=== PATIENT | female | born 1965 ===

== ENCOUNTER 2017-03-13 08:07 | Emergency (ER) | payer OTHER ==
[~2017-03-13] VITALS: Ht 167.6 cm; Wt 73.6 kg
[2017-03-13 08:12] VITALS: TEMP 36.6; Ht 167.6 cm; Wt 73.6 kg
[2017-03-13] MEDS ORDERED: MoRPHine SULFATE 4 MG/ML 1 ML CARP\\VIAL IV STA (08:55)
[2017-03-13] MEDS ORDERED: ONDANSETRON INJ 2 MG/ML 2 ML VIAL IV STA (08:55)
[2017-03-13] MEDS ORDERED: KETOROLAC TROMETHAMINE 30 MG/ML VIAL IV STA (08:55)
--- NOTE | 2017-03-13 09:00 | EMERGENCY ROOM VISIT NOTE ---
History First contact with patient: 08:43 Chief Complaint: BACK PAIN Stated Complaint: BACK SPASMS History of Present Illness The patient is a 51 year old female who presents to the Emergency Room with complaints of back pain. The patient states that last night she was getting ready for bed and bent over to open the bottom drawer and felt a severe pain in her low back. She states that she took a muscle relaxer and Tylenol as she has had this in the past. The patient states that she had no improvement today. She states she has significant discomfort with standing and walking. She states she had to crawl back and forth to the bathroom today because it was so painful. She rates her discomfort a 7/10. She denies any falls or injuries. She denies any pain in her chest or trouble breathing. She denies any fevers. She denies any radiating pain, numbness, tingling, weakness in the lower extremities. She denies any loss of bowel or bladder control. She reports a history of similar which was improved with a muscle relaxer and restorative care technician. Review of Systems A 10 system review of systems was completed with positives and pertinent negatives listed in the HPI. Past Medical/Surgical History Medical Problems: (1) Vertebral artery dissection Social History Smoking Status: Never Smoker Housing Status: lives with family Current/Historical Medications Scheduled Aspirin (Aspirin Low Dose), 1 TAB PO DAILY Atorvastatin (Lipitor), 10 MG PO DAILY Citalopram Hydrobromide (Citalopram Hydrobromide), Unknown Dose PO DAILY Enalapril (Vasotec), 10 MG PO BID Scheduled PRN Ibuprofen (Motrin), 600 MG PO Q6H PRN for Pain Oxycodone Ir (Roxicodone Ir), 1-2 TAB PO Q4H PRN for Pain Allergies Coded Allergies: No Known Allergies (Unverified , 03/13/17) Physical Exam Vital Signs Date Time Temp Pulse Resp B/P (MAP) Pulse Ox O2 Delivery O2 Flow Rate FiO2 03/13/17 11:17 56 20 147/84 98 03/13/17 10:01 67 20 147/91 96 Room Air 03/13/17 09:38 49 16 132/87 95 Room Air 03/13/17 08:12 36.6 59 18 130/83 96 Room Air Physical Exam VITALS: Vitals are noted on the nurse's note and reviewed by myself. Vital signs stable. The patient is afebrile. GENERAL: This is a 51-year-old female, in no acute distress, nondiaphoretic, well-developed well-nourished. SKIN: The skin was without rashes, erythema, edema, or bruising. There is no tenting of the skin. Capillary reflex less than 2 seconds. HEAD: Normocephalic atraumatic. EARS: The external ears are normal in appearance. EYES: Pupils equal round and reactive to light and accommodation. Conjunctivae without injection, sclerae without icterus. Extraocular movements intact. NOSE: Patent, turbinates without inflammation or discharge. MOUTH: Mucous membranes moist. Airway patent. Tongue does not deviate. NECK: Supple without nuchal rigidity. No lymphadenopathy. No thyromegaly. Cervical spine is nontender. No JVD. HEART: Regular rate and rhythm without murmurs gallops or rubs. LUNGS: Clear to auscultation bilaterally without wheezes, rales or rhonchi. No retractions or accessory muscle use. ABDOMEN: Positive bowel sounds x 4. Soft, nontender, without masses or organomegaly. MUSCULOSKELETAL: No muscle atrophy, erythema, or edema noted. Full range of motion without joint tenderness in all extremities. There is tenderness to palpation over the lumbar spine. Strength 5/5 throughout. NEURO: Patient was alert and oriented to person place and time. Normal sensation to light and sharp touch. Deep tendon reflexes 2+ throughout. No focal neurological deficits. Medical Decision & Procedures ER Provider Diagnostic Interpretation: LUMBAR SPINE 5 VIEWS CLINICAL HISTORY: Low back pain. FINDINGS: 5 views of the lumbar spine are obtained. No prior studies are available for comparison at the time of dictation. The skeletal structures are osteopenic. There is no radiographic evidence of fracture or malalignment. Vertebral body height and alignment are maintained. The transverse and spinous processes are intact. There is no evidence of spondylolysis. The intervertebral disc spaces are well-maintained. The visualized bony pelvis appears intact. There is a nonobstructed abdominal bowel gas pattern. There is moderate colonic fecal retention. An intrauterine device is noted in the pelvis. IMPRESSION: No acute bony abnormality is seen involving the lumbosacral spine. Laboratory Results 03/13/17 09:40 Red Blood Count 4.29, Mean Corpuscular Volume 94.4, Mean Corpuscular Hemoglobin 32.4, Mean Corpuscular Hemoglobin Concent 34.3, Mean Platelet Volume 10.9, Neutrophils (%) (Auto) 73.0, Lymphocytes (%) (Auto) 20.2, Monocytes (%) (Auto) 5.6, Eosinophils (%) (Auto) 0.9, Basophils (%) (Auto) 0.1, Neutrophils # (Auto) 6.24, Lymphocytes # (Auto) 1.73, Monocytes # (Auto) 0.48, Eosinophils # (Auto) 0.08, Basophils # (Auto) 0.01 03/13/17 09:40 Test 03/13/17 09:40 03/13/17 10:20 White Blood Count 8.56 K/uL (4.8-10.8) Red Blood Count 4.29 M/uL (4.2-5.4) Hemoglobin 13.9 g/dL (12.0-16.0) Hematocrit 40.5 % (37-47) Mean Corpuscular Volume 94.4 fL (80-100) Mean Corpuscular Hemoglobin 32.4 pg (25-34) Mean Corpuscular Hemoglobin Concent 34.3 g/dl (32-36) Platelet Count 154 K/uL (130-400) Mean Platelet Volume 10.9 fL (7.4-10.4) Neutrophils (%) (Auto) 73.0 % Lymphocytes (%) (Auto) 20.2 % Monocytes (%) (Auto) 5.6 % Eosinophils (%) (Auto) 0.9 % Basophils (%) (Auto) 0.1 % Neutrophils # (Auto) 6.24 K/uL (1.4-6.5) Lymphocytes # (Auto) 1.73 K/uL (1.2-3.4) Monocytes # (Auto) 0.48 K/uL (0.11-0.59) Eosinophils # (Auto) 0.08 K/uL (0-0.5) Basophils # (Auto) 0.01 K/uL (0-0.2) RDW Standard Deviation 45.6 fL (36.4-46.3) RDW Coefficient of Variation 13.3 % (11.5-14.5) Immature Granulocyte % (Auto) 0.2 % Immature Granulocyte # (Auto) 0.02 K/uL (0.00-0.02) Anion Gap 7.0 mmol/L (3-11) Est Creatinine Clear Calc Drug Dose 95.4 ml/min Estimated GFR () 114.6 Estimated GFR (Non- 98.9 BUN/Creatinine Ratio 14.7 (10-20) Calcium Level 9.4 mg/dl (8.5-10.1) Urine Color YELLOW Urine Appearance CLEAR (CLEAR) Urine pH 7.0 (4.5-7.5) Urine Specific [place] 1.008 (1.000-1.030) Urine Protein NEG (NEG) Urine Glucose (UA) NEG (NEG) Urine Ketones NEG (NEG) Urine Occult Blood TRACE (NEG) Urine Nitrite NEG (NEG) Urine Bilirubin NEG (NEG) Urine Urobilinogen NEG (NEG) Urine Leukocyte Esterase NEG (NEG) Urine WBC (Auto) 1-5 /hpf (0-5) Urine RBC (Auto) 0-4 /hpf (0-4) Urine Hyaline Casts (Auto) 0 /lpf (0-5) Urine Epithelial Cells (Auto) 5-10 /lpf (0-5) Urine Bacteria (Auto) NEG (NEG) Medications Administered Medications (Trade) Dose Ordered Sig/Isabell Route Start Time Stop Time Status Last Admin Dose Admin Morphine Sulfate (MoRPHine SULFATE INJ) 4 mg NOW STAT IV 03/13/17 08:55 03/13/17 08:57 DC 03/13/17 09:37 4 MG Ketorolac Tromethamine (Toradol Inj) 30 mg NOW STAT IV 03/13/17 08:55 03/13/17 08:57 DC 03/13/17 09:36 30 MG Ondansetron HCl (Zofran Inj) 4 mg NOW STAT IV 03/13/17 08:55 03/13/17 08:57 DC 03/13/17 09:35 4 MG ED Course The patient was seen and examined. Previous visits were reviewed. The patient does not have a fever or leukocytosis. She does not have any significant electrolyte abnormality. There is no evidence for urinary tract infection or hematuria. Lumbar spine x-rays reveal some degenerative change but no acute abnormality She was given 4 mg IV morphine, 30 mg IV Toradol and 4 mg IV Zofran The patient was feeling much better and felt as though she could move around without significant difficulty The patient presented to the emergency department with low back pain. She describes it as spasm. The pain does not radiate. She does not have any neurologic deficit on exam or by history. She does not have a fever or leukocytosis. The patient will be given a prescription for pain medication. She already has a prescription for Flexeril. She is encouraged to follow-up with a family doctor for further evaluation, management and possible referral for physical therapy and/or orthopedic referral. She should return with any worsening symptoms. Medical Decision DIFFERENTIAL DIAGNOSIS: Lumbar strain, degenerative disc disease, spondylolisthesis, herniated disc, spinal stenosis, osteoporosis, fracture, cauda equina syndrome, neoplasm, infection, inflammatory arthritis, among others. Impression Primary Impression: Acute myofascial strain of lumbar region Departure Information Dispostion Home / Self-Care Condition GOOD Prescriptions Oxycodone Ir (Roxicodone Ir) 5 Mg Tab 1-2 TAB PO Q4H Y for Pain, #30 TAB For Initial Treatment Prov: Chinyere Dunn PA-C 03/13/17 Ibuprofen (Motrin) 600 Mg Tab 600 MG PO Q6H Y for Pain, #30 TAB Prov: Chinyere Dunn PA-C 03/13/17 Forms HOME CARE DOCUMENTATION FORM, IMPORTANT VISIT INFORMATION, Work Instructions Return To Work: 3 days Patient Instructions Back Pain - [facility], Low Back Pain Self Care, [facility] Additional Instructions Motrin 600 mg every 6-8 hours or moderate pain Oxy IR 1-2 tablets every 4-6 hrs as needed for worse pain. No driving or alcohol use with Oxy IR. Contact a family doctor to schedule a follow-up appointment for further evaluation and management Return with any worsening symptoms, loss of bowel or bladder control, numbness, tingling, weakness in the lower extremities Problem Qualifiers Primary Impression: Acute myofascial strain of lumbar region Encounter type: initial encounter Qualified Codes: S39.012A - Strain of muscle, fascia and tendon of lower back, initial encounter
[2017-03-13] MEDS ORDERED: ATOR10TA88 PO (09:38)
[2017-03-13] MEDS ORDERED: ASPI1TAB48 PO (09:38)
[2017-03-13] MEDS ORDERED: CITA10TA4 PO (09:38)
[2017-03-13] MEDS ORDERED: ENAL10TA88 PO (09:38)
--- NOTE | 2017-03-13 09:45 | DIAGNOSTIC IMAGING REPORT ---
LUMBAR SPINE 5 VIEWS CLINICAL HISTORY: Low back pain. FINDINGS: 5 views of the lumbar spine are obtained. No prior studies are available for comparison at the time of dictation. The skeletal structures are osteopenic. There is no radiographic evidence of fracture or malalignment. Vertebral body height and alignment are maintained. The transverse and spinous processes are intact. There is no evidence of spondylolysis. The intervertebral disc spaces are well-maintained. The visualized bony pelvis appears intact. There is a nonobstructed abdominal bowel gas pattern. There is moderate colonic fecal retention. An intrauterine device is noted in the pelvis. IMPRESSION: No acute bony abnormality is seen involving the lumbosacral spine. Electronically signed by: Dwayne Trejo M.D. 03/13/2017 9:44 AM Dictated Date/Time: 03/13/2017 9:43 AM
[2017-03-13 10:03] LABS: BASO % 0.1 %; BASO ABS # 0.01 K/uL (0-0.2); COMPLETE YES; EOS % 0.9 %; HEMATOCRIT 40.5 % (37-47); IG% 0.2 %; LYMPH % 20.2 %; LYMPH ABS # 1.73 K/uL (1.2-3.4); MEAN CELL VOLUME 94.4 fL (80-100); MEAN CORPUSCULAR HEMOGLOBIN 32.4 pg (25-34); MEAN CORPUSCULAR HGB CONC 34.3 g/dl (32-36); MEAN PLATELET VOLUME 10.9 fL (7.4-10.4); MONO % 5.6 %; PLATELET COUNT 154 K/uL (130-400); RED BLOOD COUNT 4.29 M/uL (4.2-5.4); WHITE BLOOD COUNT 8.56 K/uL (4.8-10.8)
[2017-03-13 10:09] LABS: BUN/CREATININE RATIO 14.7 (10-20); CALCIUM 9.4 mg/dl (8.5-10.1); CREATININE 0.7 mg/dl (0.60-1.20); POTASSIUM 3.9 mmol/L (3.5-5.1)
[2017-03-13 10:48] LABS: URINE APPEARANCE CLEAR (CLEAR); URINE BILIRUBIN NEG (NEG); URINE COLOR YELLOW; URINE NITRITE NEG (NEG); URINE SPECIFIC GRAVITY 1.008 (1.000-1.030); UROBILINOGEN NEG (NEG); ZZUR CULT IF INDIC CLEAN CATCH NO
[2017-03-13 10:50] LABS: MANUAL MICROSCOPIC REQUIRED? NO; REVIEW REQ? NO
[2017-03-13] MEDS ORDERED: OXYC1TAB3 PO (10:51)
[2017-03-13] MEDS ORDERED: IBUP600T44 PO (10:51)
[2017-03-13 11:17] VITALS: BP 147/84; PULSE 56; O2SAT 98
== END 2017-03-13 11:19 | disposition home or self-care (01) ==
LOC: C.EDA 08:09
DX: S39.012A Strain of muscle, fascia and tendon of lower back, initial encounter (principal); X50.0XXA Overexertion from strenuous movement or load, initial encounter; Z79.82 Long term (current) use of aspirin; Z79.899 Other long term (current) drug therapy